=== PATIENT | female | born 1945 | race Caucasian/White ===

== ENCOUNTER → 2016-05-09 | Outpatient (CLI) | payer MEDICARE, OTHER ==
[~2016-05-09] MED LIST: ALBU6.7H INH; ASP81CT PO; ATOR40TA2 PO; ATOR80TA PO; AZIT250T81 PO; BENZ-22 PO; CALC600T12 PO; CHOL10002 PO; COLE625T PO; ESCI10TA PO; FLUT16SP NSEACH; FLUT1DIS2 INH; GLMP1T PO; HYDR-3754 PO; HYDR1TABED PO; KETO10TA55 PO; LORA10TA7 PO; LOSA1TAB19 PO; LSRT50T PO; MECL25TA3 PO; MULT-28 PO; ONDA4TAB8 PO; PANT40TA3 PO; PIOG45TA PO; PRED20TA PO; SMV10T PO; WALKER; losartan
[2016-05-09 17:38] LABS: PHOSPHORUS 3.3 mg/dL (2.4-4.9)
== END ==
LOC: LAB 14:15
PROVIDERS: ATTEND Internal Medicine Nephrology
DX: N18.2 Chronic kidney disease, stage 2 (mild) (principal); R80.9 Proteinuria, unspecified
CPT/HCPCS: 36415; 80069; 82570; 84156

== ENCOUNTER → 2016-05-20 | Outpatient (CLI) | payer MEDICARE, OTHER ==
[2016-05-20 16:55] VITALS: BP 131/69
== END ==
LOC: MHUC 16:37
PROVIDERS: ATTEND Physician Assistant
DX: J40 Bronchitis, not specified as acute or chronic (principal)
CPT/HCPCS: 99213

== ENCOUNTER → 2016-07-17 | Outpatient (REF) | payer MEDICARE, OTHER | LOC: LAB 12:39 | PROVIDERS: ATTEND Family Medicine | DX: E11.9 Type 2 diabetes mellitus without complications (principal); E78.2 Mixed hyperlipidemia | CPT/HCPCS: 80061; 83036 ==

== ENCOUNTER → 2016-08-09 | Outpatient (REF) | payer MEDICARE, OTHER ==
[2016-08-09 12:53] LABS: ANION GAP 15.6 MEQ/L (3-15)
== END ==
LOC: LAB 12:16
PROVIDERS: ATTEND Family Medicine
DX: N18.2 Chronic kidney disease, stage 2 (mild) (principal)
CPT/HCPCS: 80048